=== PATIENT | male | born 1965 | race Hispanic/Latino ===

== ENCOUNTER → 2017-05-07 | Outpatient (CLI) | payer OTHER ==
--- NOTE | 2017-05-07 10:18 | REP ---
CT Head without contrast HISTORY: Headaches COMPARISON: None There is no intraparenchymal hemorrhage, acute infarct, mass or midline shift. The ventricular system is normal in appearance. There is no extra cerebral collection. There is no fracture. The visualized sinuses are clear. IMPRESSION: There is no intracranial lesion. Signed by Wolfgang Paiz MD 05/07/2017 10:10 A
== END ==
LOC: M RAD 09:35 → EDBD 09:35
PROVIDERS: ATTEND Physician Assistant
DX: R51 Headache (principal)